=== PATIENT | female | born 1965 | race Caucasian/White ===

== ENCOUNTER 2023-12-09 06:18 | Inpatient (IN) | payer MEDICARE, BC, SELFPAY ==
--- NOTE | 2023-11-07 11:19 | CM ---
Patient is scheduled for an elective R TKR on 12/09/23. Spoke with patient prior to surgery via telephone. Introduced role of Orthopedic Navigator. Patient reports that she lives with her , son, daughter in a one story home. There is one step
to enter. Her laundry is the basement. She currently functions independently. She has a cane, rolling walker and her toilet is high. She has never had VN services. PCP is Steven Flores.
Discussed orthopedic program and post surgical plans. Reviewed anticipated length of stay and that goal is for her to return home at discharge. Also reviewed outpatient PT. Patient is in agreement with tentative plan and will go directly to
outpatient PT at [facility]. She will have support from her , son and daughter when she goes home.
Patient will complete online education.
Plan: Orthopedic Navigator will remain available to assist with the care of patient and will reassess discharge needs after surgery.
[2023-11-20 09:18] VITALS: BMI 31.1
[2023-11-20 10:04] LABS: Hematocrit 43.6 % (37.0-47.0); Mean Corp Hgb Conc. 34.4 g/dL (33.0-37.0); Mean Corpuscular Hgb 29.4 pg (27.0-31.0); Mean Corpuscular Volume 85.5 fL (81.0-99.0); Mean Platelet Volume 11.3 fL (7.4-10.4); Platelet Count 286 10^3/uL (130-400); Red Cell Dist. Width 12.6 % (11.5-14.5); White Blood Cell Count 5.8 10^3/uL (4.8-10.8)
[2023-11-20 10:55] LABS: ALT (SGPT) 75 U/L (0-35); AST (SGOT) 72 U/L (14-36); Albumin 4.6 g/dl (3.5-5.0); Alkaline Phosphatase 51 U/L (38-126); Blood Urea Nitrogen 19 mg/dl (7-17); Calcium 10.5 mg/dl (8.4-10.2); Carbon Dioxide 27 mmol/L (22-30); Chloride 104 mmol/L (98-107); Estimated Creatinine Clearance 115 ml/min; Glucose 175 mg/dl (70-99); Potassium 3.8 mmol/L (3.5-5.1); Sodium 140 mmol/L (135-145); Total Bilirubin 0.6 mg/dl (0.2-1.3); Total Protein 7.3 g/dl (6.3-8.2); eGFR > 60.00
[2023-11-20 11:36] LABS: Glycohemoglobin (HgbA1c) 7.3 % (4.0-5.6)
[2023-11-20 15:35] VITALS: BMI 31.1
[2023-12-09] VITALS (11 sets, daily range): BP systolic 120–151; BP diastolic 61–99; PULSE 112; O2SAT 92; BMI 31.1
[2023-12-09 07:57] LABS: Glucose - Point of Care 166 mg/dl (70-99)
[2023-12-09] MEDS: NORMOSOL-R 1000 IV ×2 (08:12→13:58)
[2023-12-09] MEDS: TYLENOL 650 MG PO ×2 (08:12→17:32)
[2023-12-09] MEDS: CELEBREX 200 MG PO (08:13)
[2023-12-09 08:21] LABS: INR 0.98; PT 12.8 Sec (11.4-14.6)
[2023-12-09] MEDS: DDAVP 55 MCG IV (10:23)
[2023-12-09 12:53] LABS: Glucose - Point of Care 148 mg/dl (70-99)
[2023-12-09] MEDS: ULTRAM 50 MG PO ×3 (13:58→21:59)
--- NOTE | 2023-12-09 14:40 | PTCARENOTE ---
Pt arrived to 2S in bed, full assessment completed. RLE with decreased sensation and movement, neurovascular assessment otherwise intact. IVF infusing per order. R knee aquacel with a small amount of drainage noted. Bed locked and in the lowest
position, safety maintained. Oriented to room and call leos, family at bedside.
[2023-12-09 16:09] LABS: Glucose - Point of Care 299 mg/dl (70-99)
[2023-12-09] MEDS: FIORICET 1 TAB PO (17:32)
[2023-12-09] MEDS: CRESTOR 10 MG PO (17:32)
[2023-12-09] MEDS: JANUVIA 100 MG PO (17:32)
[2023-12-09] MEDS: GLUCOPHAGE XR EXTENDED RELEASE 1000 MG PO (17:32)
[2023-12-09] MEDS: TRICOR 145 MG PO (17:32)
[2023-12-09] MEDS: LOVENOX 30 MG SC (17:33)
[2023-12-09] MEDS: NEURONTIN 300 MG PO (19:58)
[2023-12-09] MEDS: SENOKOT 17.1999999999999993 MG PO (20:00)
[2023-12-09] MEDS: BACTROBAN 2% OINTMENT 1 APPLIC NASAL (20:00)
[2023-12-09] MEDS: ANCEF 5 IV (20:00)
[2023-12-09] MEDS: COLACE 100 MG PO (20:00)
[2023-12-09] MEDS: FLEXERIL 10 MG PO (21:00)
[2023-12-09] MEDS: TYLENOL PO (21:00)
[2023-12-09 21:57] LABS: Glucose - Point of Care 240 mg/dl (70-99)
[2023-12-09] MEDS: EFFEXOR XR 75 MG PO (21:59)
[2023-12-09] MEDS: DILAUDID 0.5 MG IV (23:22)
[2023-12-10] MEDS: TYLENOL PO ×2 (00:30→05:04)
--- NOTE | 2023-12-10 02:08 | PTCARENOTE ---
20:40 pt with hx dx: Von Willebrand's- pt had 3 quarter size spotted areas of bleeding visible through her Aquacell. she just ambulated to restroom and has moderate amount of bleeding noted the mid foam area of the aquacell is stained b/p 120/76 hr
112, surgeon notified. compressive wrap with rush maintained in place +CMS,and Dr moralez will see pt first thing in AM per Dr Ross.
[2023-12-10] MEDS: DILAUDID 0.5 MG IV (03:13)
[2023-12-10] MEDS: ANCEF 5 IV (04:38)
[2023-12-10 04:40] VITALS: BP 132/90
[2023-12-10 07:42] LABS: Glucose - Point of Care 189 mg/dl (70-99)
[2023-12-10 07:54] VITALS: BP 136/82
[2023-12-10 07:56] LABS: Hepatitis C Antibody Negative (Negative)
[2023-12-10] MEDS: CYKLOKAPRON 1300 MG PO ×2 (08:26→14:39)
[2023-12-10] MEDS: NEURONTIN 300 MG PO (08:27)
[2023-12-10] MEDS: ULTRAM 50 MG PO ×2 (08:27→12:44)
[2023-12-10] MEDS: GLUCOPHAGE XR EXTENDED RELEASE 500 MG PO (08:27)
[2023-12-10] MEDS: FLEXERIL 10 MG PO (08:27)
[2023-12-10] MEDS: CLARITIN 10 MG PO (08:27)
[2023-12-10] MEDS: BACTROBAN 2% OINTMENT 1 APPLIC NASAL (08:28)
[2023-12-10] MEDS: TYLENOL 650 MG PO ×2 (08:28→12:44)
[2023-12-10] MEDS: COLACE 100 MG PO (08:28)
[2023-12-10] MEDS: SENOKOT 17.1999999999999993 MG PO (08:28)
--- NOTE | 2023-12-10 08:39 | CM ---
Addendum entered by Racheal Shahid 12/10/23 12:25:
Patient did well in therapy. Her was present for sessions. Neither have concerns about discharge plans.
Original Note:
Reviewed chart and held rounds with PT, OT and nursing. Patient admitted as planned for elective R TKR. Met with patient at bedside. Confirmed information previously obtained for assessment. Also discussed discharge plans. The plan is for patient to
return home at discharge. She will have support from her and children when she goes home. Patient will go directly to outpatient PT and will go to [facility]. She has an appointment scheduled for Saturday, 12/11. Reviewed need to schedule
appointment with PA at Dr. Cash office in two weeks for removal of rubens.
Patient has a rolling walker and cane.
She will [facility] for discharge prescriptions.
--- NOTE | 2023-12-10 09:42 | W.PN.ORTHO ---
Today's Communication / Plan
-
d/c
Assessment
.
Distal Motor Intact: Yes
Dressing:
Clean, dry and intact.
Assessment:
Von Willebrand-per hematology recommendations-s/p DDAVP pre-op-will dose Tranexamic acid prior to d/c with light pressure dressing due to some drainage noted
Hx CVA with hemorrhagic conversion-Fenofibrate, BP control-asa when hematology advises
Plan
.
Surgery / Date: O/A s/p R TKA Dr. Cash 12/09/23
DVT Prophylaxis: Lovenox (40mg Sq hs until advised by hematology on 12/19/23-eventual ASA--SCD device advised and purchased)
Activity:
Out of bed.
PT/OT
Discharge Plan: Home w/ Outpatient PT
Subjective
.
.:
Patient resting comfortably.
Vital Signs and Labs
.
Vital Signs and Labs:
Lab Results
11/20/23 09:02
11/20/23 09:02
Temp Pulse Resp BP Pulse Ox
98.1 F 95 18 136/82 93
12/10/23 07:54 12/10/23 07:54 12/10/23 07:54 12/10/23 07:54 12/10/23 07:54
PT 12.8 Sec (11.4-14.6) 12/09/23 07:55
INR 0.98 12/09/23 07:55
Physical Exam
-
HEENT: No pallor, cyanosis, or jaundice. Throat clear.
EXTREMITIES: strength equal, no calf pain with palpation
blood proximal and mid bandage
BIOLOGICAL SCIENCE TECHNICIAN: AOx3. No focal deficits. grape picker grossly intact
[2023-12-10 10:03] VITALS: BP 150/97; PULSE 97; O2SAT 94
--- NOTE | 2023-12-10 10:06 | W.PN.UPDATE ---
Update Note
Progress Note Update
Patient doing well this AM. Strikethrough noted in Aquacel. Dressing removed. Incision well approximated with rubens. No active drainage. Incision cleaned with Betadine and new Aquacel placed. Compression stocking re-applied. Continue PT/OT.
Continue post-op care/Tx per Tyesha García
--- NOTE | 2023-12-10 10:12 | W.DS.TRANS ---
DC Summary - Economic Specialist
-
Discharge Instructions:
Discharge Diagnosis/Procedures O/A s/p R TKA Dr. Cash 12/09/23
Diet Diabetic, Carb Controlled
Activity With Walker
Additional Activity DR SUSAN JO APPT 12/19/23
Driving Restrictions No driving
Bathing Restrictions OK to Shower
Other Services PT
Instructions:
Stand-Alone Forms: Total Hip/Knee Replacement D/C
Changes to Home Medications: Yes
Discharge Medications:
DC Medications w/original date entered in [employer]
Biofit 1 cap PO QPM 11/18/23
cholecalciferol (vitamin D3) 25 mcg (1,000 unit) capsule (Vitamin D3) 25 mcg PO DAILY 11/18/23
cinnamon bark 500 mg capsule (Cinnamon) 1,000 mg PO DAILY 11/18/23
fenofibrate 160 mg tablet 160 mg PO QPM 11/18/23
hydrochlorothiazide 25 mg tablet 25 mg PO DAILY 11/18/23
metformin 500 mg tablet,extended release 24 hr 1,000 mg PO QPM 11/18/23
metformin 500 mg tablet,extended release 24 hr 500 mg PO DAILY 11/18/23
cceupphpyksp-spphvxmj-edzu fumarate 18 mg-folic acid 400 mcg tablet (One-A-Day Women's Complete) 1 tab PO DAILY 11/18/23
ramipril 5 mg capsule 5 mg PO BID 11/18/23
red yeast rice 600 mg tablet 600 mg PO DAILY 11/18/23
rosuvastatin 10 mg tablet 10 mg PO QPM 11/18/23
sitagliptin phosphate 100 mg tablet (Januvia) 100 mg PO QPM 11/18/23
venlafaxine 75 mg capsule,extended release 24 hr (Effexor XR) 75 mg PO HS 11/18/23
vitamin C 90 mg-zinc gluconate 15 mg-herbal complex no. 325 lozenges 1 renee PO DAILY 11/18/23
mupirocin 2 % topical ointment 1 applic topical BID infection prevention #1 tube 11/20/23
loratadine 10 mg tablet (Claritin) 10 mg PO DAILY 12/09/23
cefadroxil 500 mg capsule 500 mg PO BID infection prevention #14 caps 12/10/23
docusate sodium 100 mg capsule (Colace) 100 mg PO BID stool softner #1 cap 12/10/23
enoxaparin 40 mg/0.4 mL subcutaneous syringe (Lovenox) 40 mg (0.4 mL) SC HS Blood clot prevention/tx #30 mL 12/10/23
gabapentin 300 mg capsule 300 mg PO BID sleep/pain #20 caps 12/10/23
hydromorphone 2 mg tablet 2 - 4 mg PO Q6HPRN PRN 1 tab moderate pain, 2 if pain severe #30 tabs 12/10/23
magnesium hydroxide 400 mg/5 mL oral suspension (Milk of Magnesia) 30 ml PO HS PRN Constipation #1 mL 12/10/23
pantoprazole 20 mg tablet,delayed release (Protonix) 20 mg PO HS GI prophylaxis #30 tabs 12/10/23
sennosides 8.6 mg tablet (Senokot) 17.2 mg PO BID laxative #2 tabs 12/10/23
tizanidine 2 mg capsule 2 mg PO BID muscle relaxer/sleep #20 caps 12/10/23
tramadol 50 mg tablet 50 mg PO QID ongoing therapy #20 tabs 12/10/23
Home Medication Changes
cefadroxil 500 mg capsule 500 mg PO BID infection prevention #14 caps 12/10/23�
enoxaparin 40 mg/0.4 mL subcutaneous syringe (Lovenox) 40 mg (0.4 mL) SC HS Blood clot prevention/tx #30 mL 12/10/23�
gabapentin 300 mg capsule 300 mg PO BID sleep/pain #20 caps 12/10/23�
hydromorphone 2 mg tablet 2 - 4 mg PO Q6HPRN PRN 1 tab moderate pain, 2 if pain severe� #30 tabs 12/10/23�
pantoprazole 20 mg tablet,delayed release (Protonix) 20 mg PO HS GI prophylaxis #30 tabs 12/10/23�
tizanidine 2 mg capsule 2 mg PO BID muscle relaxer/sleep #20 caps 12/10/23�
tramadol 50 mg tablet 50 mg PO QID ongoing therapy #20 tabs 12/10/23�
Pending Results: No
--- NOTE | 2023-12-10 12:47 | PTCARENOTE ---
Per Lolly García Pa-c pt ok to receive 1600 dose of 1300mg TXA early at 1330. Care ongoing at this time.
[2023-12-10] MEDS: DILAUDID 4 MG PO (14:56)
== END 2023-12-10 15:30 | disposition home or self-care (01) | DRG 470 ==
LOC: 2 SOUTH 06:18
PROVIDERS: ADMITTING PHYSICIAN Specialist; FAMILY PHYSICIAN Family Medicine
PROC: 0SRC0J9 Replacement of Right Knee Joint with Synthetic Substitute, Cemented, Open Approach (ICD-10-PCS; 2023-12-09)
DX: M17.11 Unilateral primary osteoarthritis, right knee (principal); D68.00 Von Willebrand disease, unspecified; E66.9 Obesity, unspecified; E11.9 Type 2 diabetes mellitus without complications; G47.33 Obstructive sleep apnea (adult) (pediatric); I10 Essential (primary) hypertension; E78.5 Hyperlipidemia, unspecified; F32.A Depression, unspecified; F41.9 Anxiety disorder, unspecified; R74.01 Elevation of levels of liver transaminase levels; M20.40 Other hammer toe(s) (acquired), unspecified foot; Z68.31 Body mass index [BMI] 31.0-31.9, adult; Z86.73 Personal history of transient ischemic attack (TIA), and cerebral infarction without residual deficits; Z79.01 Long term (current) use of anticoagulants; Z79.84 Long term (current) use of oral hypoglycemic drugs; Z88.1 Allergy status to other antibiotic agents
CPT/HCPCS: 36415; 73560; 80053; 82962; 83036; 85027; 85610; 86803; 87070; 93005; 97110; 97116; 97162; 97166; 97530; C1713; C1776; J2597

== ENCOUNTER → 2024-03-11 11:14 | Outpatient (REF) | payer OTHER, SELFPAY | LOC: HWRCS 11:14 | PROVIDERS: ATTENDING PHYSICIAN Internal Medicine Cardiovascular Disease; FAMILY PHYSICIAN Family Medicine | DX: R94.31 Abnormal electrocardiogram [ECG] [EKG] (principal); I10 Essential (primary) hypertension | CPT/HCPCS: 93306 ==

== ENCOUNTER 2024-04-27 06:14 | Day surgery (SDC) | payer OTHER, SELFPAY ==
--- NOTE | 2024-03-25 11:32 | CM ---
Patient is scheduled for an elective L TKR on 04/27/24. Spoke with patient prior to surgery via telephone. Patient had a R TJKR at in November 2023. Reintroduced role of Orthopedic Navigator. Patient reports that she lives with her , son,
daughter in a one story home. There is one step to enter. Her laundry is the basement. She currently functions independently. She has a cane, rolling walker and her toilet is high. She has never had VN services. PCP is Steven Flores.
Discussed orthopedic program and post surgical plans. Reviewed anticipated length of stay and that goal is for her to return home at discharge. Also reviewed outpatient PT. Patient is in agreement with tentative plan and will go directly to
outpatient PT at [facility]. She will have support from her , son and daughter when she goes home.
Patient will complete online education.
Plan: Orthopedic Navigator will remain available to assist with the care of patient and will reassess discharge needs after surgery.
[2024-04-07 12:19] VITALS: BMI 30.7
[2024-04-07 14:03] LABS: Hematocrit 42.1 % (37.0-47.0); Hemoglobin 14.4 g/dL (12.0-16.0); Mean Corp Hgb Conc. 34.2 g/dL (33.0-37.0); Mean Corpuscular Volume 84.7 fL (81.0-99.0); Mean Platelet Volume 11.7 fL (7.4-10.4); Platelet Count 304 10^3/uL (130-400); Red Blood Cell Count 4.97 10^6/uL (4.20-5.40); Red Cell Dist. Width 13.1 % (11.5-14.5); White Blood Cell Count 6.7 10^3/uL (4.8-10.8)
--- NOTE | 2024-04-07 14:05 | PTCARENOTE ---
Patients 04/07 ECG abnormal- patient getting cardio clearance- Rocio @ Dr. Cash notified of same
[2024-04-07 14:24] LABS: ALT (SGPT) 73 U/L (0-35); AST (SGOT) 74 U/L (14-36); Alkaline Phosphatase 62 U/L (38-126); Blood Urea Nitrogen 20 mg/dl (7-17); Calcium 10.8 mg/dl (8.4-10.2); Carbon Dioxide 26 mmol/L (22-30); Chloride 101 mmol/L (98-107); Estimated Creatinine Clearance 112 ml/min; Glucose 161 mg/dl (70-99); Potassium 4.1 mmol/L (3.5-5.1); Sodium 140 mmol/L (135-145); Total Bilirubin 0.5 mg/dl (0.2-1.3); Total Protein 7.5 g/dl (6.3-8.2); eGFR > 60.00
[2024-04-08 09:57] LABS: Glycohemoglobin (HgbA1c) 7.5 % (4.0-5.6)
[2024-04-23 10:18] VITALS: BMI 30.7
[2024-04-27] VITALS (14 sets, daily range): BP systolic 108–149; BP diastolic 70–93; PULSE 80
[2024-04-27 09:25] LABS: Glucose - Point of Care 168 mg/dl (70-99)
[2024-04-27] MEDS: TYLENOL 650 MG PO (09:38)
[2024-04-27] MEDS: CELEBREX 200 MG PO (09:38)
[2024-04-27] MEDS: NORMOSOL-R 1000 IV ×3 (09:39→16:38)
[2024-04-27 11:21] LABS: Glucose - Point of Care 132 mg/dl (70-99)
--- NOTE | 2024-04-27 12:20 | W.PN.UPDATE ---
Update Note
Progress Note Update
Von Willebrand
hx CVA w/ hemorrhagic conversion
bleeding risk w/ hypercoagulabilty
-relatively recently taken off Warfarin and placed on 81mg asa daily for long-term use
-asa was advised to be held pre-op
-DDAVP to be infused akil-operatively
-Tranexamic acid prn
-post-op clot prevention-Lovenox 40mgSQ POD#1 x 30 days-ten resume 81mg asa + SCD
-GI ppx
Pain regimen as prior:
Gabapentin 300mg bid
Dilaudid 2-4mg prn
Tramadol 50mg qid
Tizanadine 2mg bid
NIDDM-A1C 7.5
-+ Lantus low dose w/ Novolog SSI and standing coverage to home meds
-Cefadroxil ppx OP RX
[2024-04-27] MEDS: DDAVP 55 MCG IV (12:27)
--- NOTE | 2024-04-27 12:34 | PTCARENOTE ---
DDAVP started at 1233. Will monitor patient.
[2024-04-27 13:16] LABS: Glucose - Point of Care 138 mg/dl (70-99)
--- NOTE | 2024-04-27 14:00 | W.DS.TRANS ---
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
-
Discharge Instructions:
Discharge Diagnosis/Procedures L BRADY Cash 04/27/24
Diet Diabetic, Carb Controlled
Activity With Walker
Driving Restrictions No driving
Bathing Restrictions OK to Shower
Other Services PT
Instructions:
Stand-Alone Forms:
Changes to Home Medications: Yes
Discharge Medications:
DC Medications w/original date entered in [employer]
cholecalciferol (vitamin D3) 25 mcg (1,000 unit) capsule (Vitamin D3) 25 mcg PO DAILY Supplement 11/18/23
cinnamon bark 500 mg capsule (Cinnamon) 1,000 mg PO DAILY Supplement 11/18/23
fenofibrate 160 mg tablet 160 mg PO QPM High Cholesterol 11/18/23
hydrochlorothiazide 25 mg tablet 25 mg PO DAILY Fluid Retention/Swelling 11/18/23
metformin 500 mg tablet,extended release 24 hr 1,000 mg PO QPM Diabetes 11/18/23
metformin 500 mg tablet,extended release 24 hr 500 mg PO DAILY Diabetes 11/18/23
dhunntnlojcq-godhbjvz-jedr fumarate 18 mg-folic acid 400 mcg tablet (One-A-Day Women's Complete) 1 tab PO DAILY Supplement 11/18/23
ramipril 5 mg capsule 5 mg PO BID Blood Pressure 11/18/23
red yeast rice 600 mg tablet 600 mg PO DAILY Supplement 11/18/23
rosuvastatin 10 mg tablet 10 mg PO QPM High Cholesterol 11/18/23
sitagliptin phosphate 100 mg tablet (Januvia) 100 mg PO QPM Diabetes 11/18/23
venlafaxine 75 mg capsule,extended release 24 hr (Effexor XR) 75 mg PO HS Mental Health/Anxiety 11/18/23
loratadine 10 mg tablet (Claritin) 10 mg PO DAILY Allergies 12/09/23
alprazolam 1 mg tablet (Xanax) 1 mg PO PRN PRN anxiety 04/21/24
aspirin 81 mg tablet,delayed release 81 mg PO DAILY 04/21/24
chlorhexidine gluconate 4 % topical liquid (Hibiclens) 1 applic topical DIRECTED 04/21/24
elderberry fruit 200 mg capsule 200 mg PO DAILY 04/21/24
mupirocin 2 % topical ointment 1 applic topical DIRECTED 04/21/24
Saccharomyces boulardii 250 mg capsule (Florastor) 250 mg PO BID #1 cap 04/27/24
cefadroxil 500 mg capsule 500 mg PO BID infection prevention #14 caps 04/27/24
docusate sodium 100 mg capsule (Colace) 100 mg PO BID stool softner #1 cap 04/27/24
enoxaparin 40 mg/0.4 mL subcutaneous syringe (Lovenox) 40 mg (0.4 mL) SC DAILY Blood clot prevention/tx #30 mL 04/27/24
gabapentin 300 mg capsule 300 mg PO BID sleep/pain #20 caps 04/27/24
hydromorphone 2 mg tablet 2 - 4 mg (1 - 2 x 2 mg) PO Q6H PRN 1 tab moderate pain, 2 severe #30 tabs 04/27/24
magnesium hydroxide 400 mg/5 mL oral suspension (Milk of Magnesia) 30 ml PO HS PRN Constipation #1 mL 04/27/24
pantoprazole 20 mg tablet,delayed release (Protonix) 20 mg PO HS GI prophylaxis #30 tabs 04/27/24
sennosides 8.6 mg tablet (Senokot) 17.2 mg (2 x 8.6 mg) PO BID laxative #2 tabs 04/27/24
tizanidine 2 mg capsule 2 mg PO BID muscle relaxer/sleep #20 caps 04/27/24
tramadol 50 mg tablet 50 mg PO QID s/p joint replacement-pain #20 tabs 04/27/24
Home Medication Changes
cefadroxil 500 mg capsule 500 mg PO BID infection prevention #14 caps 04/27/24�
enoxaparin 40 mg/0.4 mL subcutaneous syringe (Lovenox) 40 mg (0.4 mL) SC DAILY Blood clot prevention/tx #30 mL 04/27/24�
gabapentin 300 mg capsule 300 mg PO BID sleep/pain #20 caps 04/27/24�
hydromorphone 2 mg tablet 2 - 4 mg (1 - 2 x 2 mg) PO Q6H PRN 1 tab moderate pain, 2 severe #30 tabs 04/27/24�
pantoprazole 20 mg tablet,delayed release (Protonix) 20 mg PO HS GI prophylaxis #30 tabs 04/27/24�
tizanidine 2 mg capsule 2 mg PO BID muscle relaxer/sleep #20 caps 04/27/24�
tramadol 50 mg tablet 50 mg PO QID s/p joint replacement-pain #20 tabs 04/27/24�
Pending Results: No
[2024-04-27 16:23] LABS: Glucose - Point of Care 162 mg/dl (70-99)
[2024-04-27] MEDS: DILAUDID 4 MG PO (16:26)
[2024-04-27] MEDS: TYLENOL 1000 MG PO (16:55)
--- NOTE | 2024-04-27 17:34 | PTCARENOTE ---
1710: Patient arrived to 2S post L TKA. L knee aquacell intact with a scant amount of drainage. Full head to toe assessment completed. B/L LE neurovascular assessment completed. IVF running per order. Call leos within reach and bed in lowest
position.
[2024-04-27 17:44] LABS: Glucose - Point of Care 207 mg/dl (70-99)
[2024-04-27] MEDS: ULTRAM 50 MG PO ×2 (17:58→21:05)
[2024-04-27] MEDS: TRICOR 145 MG PO (17:58)
[2024-04-27] MEDS: JANUVIA 100 MG PO (17:58)
[2024-04-27] MEDS: CRESTOR 10 MG PO (17:59)
[2024-04-27] MEDS: LANTUS 0.05 UNITS SC (17:59)
[2024-04-27] MEDS: NOVOLOG FLEXPEN-MODERATE RESISTANCE 3 UNITS SC (18:00)
[2024-04-27] MEDS: NOVOLOG FLEXPEN 2 UNITS SC (18:00)
[2024-04-27] MEDS: GLUCOPHAGE XR EXTENDED RELEASE 1000 MG PO (18:04)
[2024-04-27] MEDS: ALTACE PO (20:38)
[2024-04-27] MEDS: BACTROBAN 2% OINTMENT 1 APPLIC NASAL (20:43)
[2024-04-27] MEDS: NEURONTIN 300 MG PO (20:44)
[2024-04-27] MEDS: CYKLOKAPRON 1300 MG PO (20:44)
[2024-04-27] MEDS: ZANAFLEX 2 MG PO (20:44)
[2024-04-27] MEDS: PEPCID 20 MG PO (21:04)
[2024-04-27] MEDS: EFFEXOR XR 75 MG PO (21:04)
[2024-04-27] MEDS: SENOKOT PO (21:05)
[2024-04-27] MEDS: COLACE PO (21:05)
[2024-04-27] MEDS: ANCEF 5 IV (21:05)
[2024-04-27 22:03] LABS: Glucose - Point of Care 301 mg/dl (70-99)
[2024-04-27] MEDS: NOVOLOG FLEXPEN 7 UNITS SC (23:14)
[2024-04-27] MEDS: DILAUDID 2 MG PO (23:18)
[2024-04-27] MEDS: XANAX 1 MG PO (23:18)
[2024-04-28 03:02] LABS: Glucose - Point of Care 201 mg/dl (70-99)
[2024-04-28 03:21] VITALS: BP 109/73
[2024-04-28 03:30] VITALS: PULSE 84
[2024-04-28] MEDS: ANCEF 5 IV (05:02)
[2024-04-28] MEDS: DILAUDID 2 MG PO (05:49)
[2024-04-28 07:05] VITALS: BP 111/70
[2024-04-28 07:06] LABS: Glucose - Point of Care 202 mg/dl (70-99)
[2024-04-28] MEDS: NOVOLOG FLEXPEN-MODERATE RESISTANCE 3 UNITS SC (07:31)
[2024-04-28] MEDS: NOVOLOG FLEXPEN 2 UNITS SC ×2 (07:32→11:47)
[2024-04-28] MEDS: CYKLOKAPRON 1300 MG PO ×2 (07:33→11:47)
[2024-04-28] MEDS: LOVENOX 40 MG SC (07:33)
[2024-04-28] MEDS: ORETIC 12.5 MG PO (07:34)
[2024-04-28] MEDS: SENOKOT 17.2 MG PO (07:34)
[2024-04-28] MEDS: NEURONTIN 300 MG PO (07:34)
[2024-04-28] MEDS: XANAX 0.5 MG PO (07:34)
[2024-04-28] MEDS: CLARITIN 10 MG PO (07:34)
[2024-04-28] MEDS: GLUCOPHAGE XR EXTENDED RELEASE 500 MG PO (07:34)
[2024-04-28] MEDS: ZANAFLEX 2 MG PO (07:34)
[2024-04-28] MEDS: ULTRAM 50 MG PO (07:35)
[2024-04-28] MEDS: COLACE 100 MG PO (07:35)
[2024-04-28] MEDS: BACTROBAN 2% OINTMENT 1 APPLIC NASAL (07:36)
[2024-04-28] MEDS: ALTACE 5 MG PO (07:36)
[2024-04-28] MEDS: LANTUS 0.05 UNITS SC (08:03)
--- NOTE | 2024-04-28 08:38 | CM ---
Reviewed chart and held rounds with PT, OT and nursing. Patient admitted as planned for elective L TKR. Met with patient at bedside. Confirmed information previously obtained for assessment. Also discussed discharge plans. The plan is for patient to
return home at discharge. She will have support from her and children when she goes home. Patient will go directly to outpatient PT and will go to [facility]. She has an appointment scheduled for Saturday, 04/29. Reviewed need to schedule
appointment with PA at Dr. Cash office in two weeks for removal of rubens.
Patient has a rolling walker and cane.
She will use [facility] pharmacy for discharge prescriptions.
[2024-04-28 09:38] VITALS: BP 117/69; PULSE 98; O2SAT 95
--- NOTE | 2024-04-28 10:35 | W.PN.ORTHO ---
Today's Communication / Plan
-
d/c
Assessment
.
Distal Motor Intact: Yes
Dressing:
Clean, dry and intact.
Assessment:
Von Willebrand
hx CVA w/ hemorrhagic conversion
bleeding risk w/ hypercoagulabilty
-relatively recently taken off Warfarin and placed on 81mg asa daily for long-term use
-asa was advised to be held pre-op
-DDAVP to be infused akil-operatively
-Tranexamic acid prn
-post-op clot prevention-Lovenox 40mgSQ POD#1 x 30 days-then resume 81mg asa + SCD
-GI ppx
Pain regimen as prior:
Gabapentin 300mg bid
Dilaudid 2-4mg prn
Tramadol 50mg qid
Tizanadine 2mg bid
NIDDM-A1C 7.5
-+ Lantus low dose w/ Novolog SSI and standing coverage to home meds
-Cefadroxil ppx OP RX
Plan
.
Surgery / Date: Jaiden Cash 04/27/24
DVT Prophylaxis: Lovenox (Lovenox 40mgSQ POD#1 x 30 days-then resume 81mg asa + SCD)
Activity:
Out of bed.
PT/OT
Subjective
.
.:
Patient resting comfortably.
Vital Signs and Labs
.
Vital Signs and Labs:
Lab Results
04/07/24 12:12
04/07/24 12:12
Temp Pulse Resp BP Pulse Ox
98.2 F 100 18 111/70 93
04/28/24 07:05 04/28/24 07:05 04/28/24 07:05 04/28/24 07:05 04/28/24 07:05
Non-invasive Hgb result: 13.6
Physical Exam
-
HEENT: No pallor, cyanosis, or jaundice. Throat clear.
NECK: Supple. No JVD.
RESPIRATORY: Lungs clear to auscultation.
CVS: S1, S2 normal. RRR.� No murmur, rub or gallop.
ABDOMEN: Soft, non-tender. No distension. BS+/normal.
EXTREMITIES: strength equal, no calf pain with palpation-some drainage within 25-30% of aquacell
VENDOR MANAGEMENT SPECIALIST: AOx3. No focal deficits. community relations manager grossly intact
[2024-04-28 11:05] VITALS: BP 96/66
[2024-04-28 11:26] VITALS: BP 96/69; PULSE 93; O2SAT 94
[2024-04-28 11:40] LABS: Glucose - Point of Care 196 mg/dl (70-99)
[2024-04-28] MEDS: NOVOLOG FLEXPEN-MODERATE RESISTANCE 1 UNITS SC (11:47)
== END 2024-04-28 12:29 | disposition home or self-care (01) ==
LOC: SDS 06:14
PROVIDERS: ATTENDING PHYSICIAN Specialist; FAMILY PHYSICIAN Family Medicine; OTHER PHYSICIAN Internal Medicine Cardiovascular Disease; OTHER PHYSICIAN Internal Medicine Endocrinology, Diabetes & Metabolism; OTHER PHYSICIAN Internal Medicine Hematology & Oncology
DX: M17.12 Unilateral primary osteoarthritis, left knee (principal)
CPT/HCPCS: 27447; 36415; 73560; 80053; 82962; 83036; 85027; 87070; 93005; 94660; 97116; 97161; 97166; C1713; C1776; J2597

== ENCOUNTER → 2024-06-22 07:25 | Outpatient (REF) | payer OTHER, SELFPAY | LOC: RAD 07:25 | PROVIDERS: ATTENDING PHYSICIAN Internal Medicine Endocrinology, Diabetes & Metabolism; FAMILY PHYSICIAN Family Medicine | DX: E05.90 Thyrotoxicosis, unspecified without thyrotoxic crisis or storm (principal) | CPT/HCPCS: 78014; A9516 ==

== ENCOUNTER → 2025-02-22 11:58 | Outpatient (REF) | payer OTHER, SELFPAY | LOC: DHSLP 11:58 | PROVIDERS: ATTENDING PHYSICIAN Internal Medicine Critical Care Medicine; FAMILY PHYSICIAN Internal Medicine | DX: G47.33 Obstructive sleep apnea (adult) (pediatric) (principal); R06.83 Snoring | CPT/HCPCS: 95800 ==

== ENCOUNTER → 2025-04-01 08:42 | Outpatient (REF) | payer BC, SELFPAY | LOC: DHSLP 08:42 | PROVIDERS: ATTENDING PHYSICIAN Internal Medicine Critical Care Medicine; FAMILY PHYSICIAN Internal Medicine | DX: G47.33 Obstructive sleep apnea (adult) (pediatric) (principal); G47.61 Periodic limb movement disorder; G47.00 Insomnia, unspecified | CPT/HCPCS: 95810 ==

== ENCOUNTER → 2025-07-30 08:29 | Outpatient (REF) | payer BC, SELFPAY | LOC: HWRAD 08:29 | PROVIDERS: ATTENDING PHYSICIAN Internal Medicine | DX: Z00.00 Encounter for general adult medical examination without abnormal findings (principal); M81.0 Age-related osteoporosis without current pathological fracture | CPT/HCPCS: 77080 ==